=== PATIENT | male | born 1960 | race Caucasian/White ===

== ENCOUNTER → 2017-03-08 | Outpatient (CLI) | payer OTHER ==
[~2017-03-08] MED LIST: AUG0.05O4 EX; BCTRO; BETA0.1C3 EXT; IBUP-1050 PO; USTE45IN SC
[2017-03-12 13:45] LABS: HEPATITIS C VIRAL RNA BY PCR <15 NOT DETECTED IU/ML (<15); HEPATITIS C VIRAL RNA(LOG) PCR <1.18 NOT DETECTED LOG IU/ML (<1.18)
== END | disposition home or self-care (01) ==
LOC: C.LAB1850 13:53
PROVIDERS: ATTEND Nurse Practitioner Family
DX: B18.2 Chronic viral hepatitis C (principal)

== ENCOUNTER → 2017-11-27 | Outpatient (CLI) | payer OTHER ==
[~2017-11-27] MED LIST changes: +AMOX875T PO; +OXYC-737 PO
== END | disposition home or self-care (01) ==
LOC: C.LAB 18:19
DX: Z02.83 Encounter for blood-alcohol and blood-drug test (principal)

== ENCOUNTER 2018-06-27 12:28 | Emergency (ER) | payer OTHER ==
[~2018-06-27] VITALS: Ht 180.3 cm; Wt 78.4 kg
[~2018-06-27 12:28] MED LIST changes: -AMOX875T PO; -OXYC-737 PO
[2018-06-27] MEDS ORDERED: SODIUM CHLORIDE 0.9% 1000ML 1,000 ML IV STA (12:35)
[2018-06-27 12:37] VITALS: Ht 180.3 cm; Wt 78.4 kg
[2018-06-27 12:58] LABS: BASO % 0.5 %; BASO ABS # 0.05 K/uL (0-0.2); EOS % 2.5 %; EOS ABS # 0.24 K/uL (0-0.5); HEMATOCRIT 49.2 % (42-52); HEMOGLOBIN 16.4 g/dL (14.0-18.0); IG# 0.02 K/uL (0.00-0.02); LYMPH % 44.3 %; LYMPH ABS # 4.26 K/uL (1.2-3.4); MEAN CORPUSCULAR HEMOGLOBIN 33.7 pg (25-34); MEAN CORPUSCULAR HGB CONC 33.3 g/dl (32-36); MEAN PLATELET VOLUME 11.1 fL (7.4-10.4); MONO % 5.9 %; MONO ABS # 0.57 K/uL (0.11-0.59); NEUT % 46.6 %; NEUT ABS # 4.47 K/uL (1.4-6.5); PLATELET COUNT 201 K/uL (130-400); RED CELL DISTRIBUTION WIDTH CV 13.7 % (11.5-14.5); RED CELL DISTRIBUTION WIDTH SD 51.2 fL (36.4-46.3); WHITE BLOOD COUNT 9.61 K/uL (4.8-10.8)
--- NOTE | 2018-06-27 13:06 | EMERGENCY ROOM VISIT NOTE ---
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 the same time. Take your medications as prescribed. If taking an antibiotic consider taking a probiotic and/or eating yogurt, but at the least, please take with food as it can cause upset stomach. If you still have discomfort you may take the narcotic medication. Please be advised that these medications are habit forming, can make you sleepy, and can cause breathing issues. Do not use if you require your full attention. Take only as prescribed. You have been examined and treated today on an emergency basis only. This is not a substitute for, or an effort to provide, complete comprehensive medical care. It is impossible to recognize and treat all injuries or illnesses in a single emergency department visit. It is therefore important that you follow up closely with [facility], your PCP, and/or your specialist(s). Call as soon as possible for an appointment. Thank you for your time and consideration. I look forward to speaking with you again soon. Please don't hesitate to call us if you have any questions. Problem Qualifiers
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
[2018-06-27 13:13] LABS: PTT PATIENT 22.5 SECONDS (21.0-31.0)
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
[2018-06-27] MEDS ORDERED: DIPHTHERIA/TETANUS/PERTUSSIS 0.5 ML SYR/VIAL IM. ONE (13:15)
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
[2018-06-27 13:21] LABS: ALBUMIN 4.2 gm/dl (3.4-5.0); ALKALINE PHOSPHATASE 88 U/L (45-117); ALT/SGPT 27 U/L (12-78); AST/SGOT 21 U/L (15-37); BLOOD UREA NITROGEN 18 mg/dl (7-18); CALCIUM 9.4 mg/dl (8.5-10.1); CARBON DIOXIDE 11 mmol/L (21-32); CREATININE 1.54 mg/dl (0.60-1.40); GLUCOSE 123 mg/dl (70-99); POTASSIUM 3.7 mmol/L (3.5-5.1); SODIUM 139 mmol/L (136-145); TOTAL PROTEIN 8.6 gm/dl (6.4-8.2)
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
[2018-06-27 13:22] VITALS: O2SAT 96
[2018-06-27] MEDS ORDERED: AMOXICILLIN/CLAVULANATE TAB 875 MG TAB PO ONE (13:45)
[2018-06-27] MEDS ORDERED: FENTANYL CITRATE INJ 50 MCG/1 ML 2 ML VIAL IV ONE (13:45)
[2018-06-27] MEDS ORDERED: LIDOCAINE/EPINEPHRINE 1% 20 ML VIAL INFIL ONE (13:45)
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
[2018-06-27] MEDS ORDERED: MoRPHine SULFATE 4 MG/ML 1 ML CARP\\VIAL ONE (15:17)
[2018-06-27] MEDS ORDERED: AMOX875T PO ×2 (15:43→18:43)
[2018-06-27] MEDS ORDERED: OXYC-737 PO ×2 (15:43→18:43)
[2018-06-27] MEDS ORDERED: NURSING VERBAL MED ORDER ONE (16:15)
[2018-06-27] MEDS ORDERED: MoRPHine SULFATE 4 MG/ML 1 ML CARP\\VIAL IV STA (16:17)
[2018-06-27 18:58] VITALS: BP 131/79; PULSE 81; TEMP 37.1; O2SAT 94
[2018-06-30 10:26] LABS: HEPATITIS C VIRAL RNA BY PCR <15 NOT DETECTED IU/ML (<15); HEPATITIS C VIRAL RNA(LOG) PCR <1.18 NOT DETECTED LOG IU/ML (<1.18)
[2018-06-30 14:10] LABS: ISTAT CREATININE 1.1 mg/dl (0.6-1.3); ISTAT IONIZED CALCIUM 1.07 mmol/l (1.12-1.32); ISTAT POTASSIUM 3.9 mEq/L (3.3-5.0)
== END 2018-06-27 19:00 | disposition home or self-care (01) ==
LOC: C.EDB 12:28
DX: S41.112A Laceration without foreign body of left upper arm, initial encounter (principal); S21.112A Laceration without foreign body of left front wall of thorax without penetration into thoracic cavity, initial encounter; S01.412A Laceration without foreign body of left cheek and temporomandibular area, initial encounter; X99.1XXA Assault by knife, initial encounter; Y92.008 Other place in unspecified non-institutional (private) residence as the place of occurrence of the external cause; F17.200 Nicotine dependence, unspecified, uncomplicated

== ENCOUNTER 2025-08-30 11:08 | Inpatient (IN) ==
--- NOTE | 2025-08-30 11:24 | Emergency Department Note ---
Impression & Plan Acute hypoxic respiratory failure, Pulmonary embolism, bilateral, Rhinovirus ED Provider Note NAME: JAVIER ALEXANDER AGE: 64 SEX: M : 1960 ARRIVES VIA: Walk-In INFORMANT: Patient ED PROVIDER(S): Miguel Barahona DO CHIEF COMPLAINT: Shortness of breath and chest pain HPI: Patient is a 64-year-old male with a past medical history of intermittent palpitations who presents to the ER for shortness of breath and chest pain referred in by urgent care. Symptoms started about 2 weeks ago with cough and congestion. He has been bringing up yellow-white mucus. Shortness of breath and chest pain has been getting worse. Chest pain waxes and wanes in intensity but does not resolve. Located on the left breast that is sharp and stabbing. Worse with breathing. Denies any history of hypertension, hyperlipidemia, CAD. No recent trips or travel. No belly pain, nausea, vomiting or diarrhea. No dysuria, urgency or frequency. ADDITIONAL HISTORY OBTAINED: Per HPI Chronic Medical/Social Conditions Affecting Care: Per HPI PAST MEDICAL HISTORY:See Below PAST SURGICAL HISTORY:See Below FAMILY HISTORY:See Below SOCIAL HISTORY:See Below HOME MEDICATIONS:See Below ALLERGIES:See Below VITALS:See Below PHYSICAL EXAMINATION: GENERAL: Sitting up in bed, alert, well appearing, well nourished, no distress, non-toxic EYE EXAM: normal conjunctiva. OROPHARYNX: no exudate, no erythema, lips, buccal mucosa, and tongue normal and mucous membranes are moist NECK: supple, no nuchal rigidity, no adenopathy, non-tender LUNGS: Wheezing bilaterally. Normal chest wall mechanics HEART: no murmurs, S1 normal and S2 normal ABDOMEN: abdomen soft, non-tender, normo-active bowel sounds, no masses, no rebound or guarding. UPPER EXTREMITIES: upper extremities are grossly normal. LOWER EXTREMITIES: No pitting edema. Calves are equal bilaterally NEURO EXAM: Normal sensorium, cranial nerves II-XII grossly intact, normal speech, no gross weakness of arms, no gross weakness of legs. MEDICAL DECISION MAKING: Patient is a 64-year-old male who presents to the ER for the above-stated complaint. IV was established and blood work was obtained. Labs showed no significant leukocytosis or anemia. INR unremarkable. D-dimer was elevated at 15,000. BMP along with LFTs bilirubin and lipase is unremarkable. Troponins negative. Viral panel was positive for rhinovirus. CT angio of the chest shows bilateral PEs. Patient was placed on a heparin drip and bolus. Discussed with hospitalist for further evaluation management and treatment. Consults/Care Managements Discussions: Per [facility] Triage Nursing notes reviewed. Limited review of prior medical records performed Vital Signs: reviewed and remarkable for no significant abnormalities Differential diagnosis: Differential diagnoses includes but is not limited to pneumonia, bronchitis, COPD/Asthma exacerbation, pneumothorax, pulmonary embolism, congestive heart failure, acute coronary syndrome ER treatment provided: See below Diagnostics interpreted by me include EKG and cardiac monitoring as listed below: -Cardiac Monitoring: An order was placed for continuous cardiac monitoring. The monitor shows a rate of 95 with sinus rhythm. -ECG: Sinus rhythm rate 87 Normal axis No PVCs QTc 445 -Laboratory studies:Interpreted by me as stated above in MDM and shown below. Imaging studies: Xrays: As interpreted by me: Portable AP Apt. 1 view of the chest shows no focal Lutrate CTs show: CT angio of the chest shows bilateral PEs per my pulmonary interpretation CT angio of the chest shows bilateral PEs Procedures:none Critical Care: I have personally spent 75 minutes of critical care time in the direct management of this patient. This includes bedside care, interpretation of diagnostic studies, and testing, discussion with consultants, patient, and family members, and other required patient management activities. This 75 minutes is in excess of all separately billable procedures. Past Med/Surg History Problem List (Updated 08/30/25 @ 15:09 by Miguel Barahona DO) Rhinovirus (Acute) Acute hypoxic respiratory failure (Acute) Chest pain Pulmonary embolism, bilateral (Acute) Intermittent palpitations (Acute) Abnormal finding on CT scan (Acute) Penile lesion BPH (benign prostatic hyperplasia) Erectile dysfunction COVID-19 (Acute) Altered mental status Medical History Tumor of penis Arthritis, rheumatoid Hepatitis C Surgical History No pertinent past surgical history Social History Smoking Status: Current every day smoker Tobacco Type: E-cigarettes / Vaping Hx Alcohol Use: No Hx Substance Use: No Preferred Language: Swazi Communication Ability: Effective Sales Specialist Required: No Beliefs That Will Affect Care: None Current Living Situation: Spouse Feels Safe at Home: Yes Assistive Devices: None Allergies Allergies Allergy/AdvReac Type Severity Reaction Status Date / Time No Known Allergies Allergy Unknown Verified 04/14/25 15:43 Home Meds Home Medications Medication Instructions Recorded Confirmed multivitamin 1 tab PO DAILY 01/23/21 08/30/25 finasteride 5 mg tablet 5 mg PO DAILY 02/02/25 08/30/25 tamsulosin 0.4 mg capsule 0.4 mg PO DAILY 02/02/25 08/30/25 ustekinumab 45 mg/0.5 mL 45 mg subcut Q3M 02/02/25 08/30/25 subcutaneous syringe (Stelara) albuterol sulfate 90 mcg/actuation 2 puff inhalation Q6H PRN 08/30/25 08/30/25 aerosol inhaler cough,sob,wheezinng benzonatate 100 mg capsule 100 mg PO UD PRN Cough 08/30/25 08/30/25 doxycycline hyclate 100 mg capsule 100 mg PO BID .for 10 days 08/30/25 08/30/25 linaclotide 145 mcg capsule 145 mcg PO DAILY 08/30/25 08/30/25 (Linzess) prednisone 10 mg tablet 10 mg PO UD 08/30/25 08/30/25 Results & Data (ED) Vital Signs Vital Signs - 24 hr 08/30/25 11:13 08/30/25 11:42 08/30/25 12:00 Temperature 36.4 C L Temperature Source Temporal Artery Scan Pulse Rate 98 H 85 85 Pulse Rate from SpO2 Sensor 85 Respiratory Rate 22 20 Respiratory Effort / Characteristics Non-Labored Spontaneous Respiratory Depth Normal Blood Pressure 131/86 129/91 Blood Pressure Mean 101 103 Pulse Oximetry 95 98 Oxygen Delivery Method Room Air Nasal Cannula Oxygen Flow Rate 3 Sepsis Recent Fever Within 48 Hours No Sepsis New/Unexplained Change in Mental Status N/A Sepsis Action Taken by Nursing No Action Required 08/30/25 12:16 08/30/25 12:30 08/30/25 13:00 Temperature Temperature Source Pulse Rate 83 83 Pulse Rate from SpO2 Sensor 84 83 Respiratory Rate 25 H 22 Respiratory Effort / Characteristics SOB on Exertion Respiratory Depth Blood Pressure 124/86 132/85 Blood Pressure Mean 98 100 Pulse Oximetry 93 90 Oxygen Delivery Method Nasal Cannula Nasal Cannula Oxygen Flow Rate 3 3 Sepsis Recent Fever Within 48 Hours Sepsis New/Unexplained Change in Mental Status Sepsis Action Taken by Nursing 08/30/25 13:39 08/30/25 14:00 08/30/25 14:33 Temperature Temperature Source Pulse Rate 81 84 84 Pulse Rate from SpO2 Sensor 81 84 84 Respiratory Rate 21 23 27 H Respiratory Effort / Characteristics Respiratory Depth Blood Pressure 128/82 124/84 Blood Pressure Mean 97 97 Pulse Oximetry 91 95 94 Oxygen Delivery Method Nasal Cannula Nasal Cannula Nasal Cannula Oxygen Flow Rate 3 3 3 Sepsis Recent Fever Within 48 Hours Sepsis New/Unexplained Change in Mental Status Sepsis Action Taken by Nursing Laboratory Data 08/30/25 11:28 08/30/25 11:28 Lab Results 08/30/25 Range/Units 11:28 WBC 8.98 (4.8-10.8) K/ul RBC 4.63 L (4.70-6.10) M/uL Hgb 14.6 (14.0-18.0) g/dl Hct 43.0 (42.0-52.0) % MCV 92.9 (80.0-100.0) fL MCH 31.5 (25.0-34.0) pg MCHC 34.0 (32.0-36.0) g/dL RDW Std Deviation 45.1 (36.4-46.3) fL RDW Coeff of [place] 13.3 (11.5-14.5) % Plt Count 168 (130-400) K/uL MPV 10.0 (9.4-12.4) fL Immature Gran % (Auto) 0.3 % Neut % (Auto) 58.8 % Lymph % (Auto) 26.1 % [place] % (Auto) 11.4 % Eos % (Auto) 3.0 % Baso % (Auto) 0.4 % Neut # (Auto) 5.28 (1.40-6.50) K/uL Lymph # (Auto) 2.34 (1.20-3.40) K/uL [place] # (Auto) 1.02 H (0.11-0.59) K/uL Eos # (Auto) 0.27 (0.00-0.50) K/uL Baso # (Auto) 0.04 (0.00-0.20) K/uL Immature Gran # (Auto) 0.03 (0.01-0.20) K/uL PT 11.4 (9.0-12.0) Seconds INR 1.1 (0.9-1.1) APTT 27 (21-31) Seconds PTT Ratio 1.0 D-Dimer 38474 H* (0-500) ug/L FEU Sodium 137 (136-145) mmol/L Potassium 4.0 (3.5-5.1) mmol/L Chloride 104 (98-107) mmol/L Carbon Dioxide 23 (21-32) mmol/L Anion Gap 10 (3-11) BUN 17 (6-23) mg/dl Creatinine 0.97 (0.6-1.4) mg/dl Est Cr Clr Drug Dosing 89.9 ml/min eGFR 87.72 BUN/Creatinine Ratio 17.5 (10-20) Glucose 94 (70-99(Fasting)) mg/dl Calcium 8.9 (8.6-10.3) mg/dl Total Bilirubin 1.3 H (0.2-1.0) mg/dl AST 23 (13-39) U/L ALT 31 (7-52) U/L Alkaline Phosphatase 53 (34-104) U/L Troponin I High Sens 4.4 (0-20) pg/ml Total Protein 7.5 (6.0-8.3) gm/dl Albumin 3.8 (3.4-5.0) gm/dl Globulin 3.7 (2.5-4.0) gm/dl Albumin/Globulin Ratio 1.0 (0.9-2) Lipase 20 (11-82) U/L Adenovirus (PCR) Not Detected (NotDetected) B. pertussis DNA (PCR) Not Detected (NotDetected) B.parapertussis DNA PCR Not Detected (NotDetected) C. pneumoniae DNA (PCR) Not Detected (NotDetected) Coronavirus OC43 (PCR) Not Detected (NotDetected) Coronavirus HKU1 (PCR) Not Detected (NotDetected) Coronavirus 229E (PCR) Not Detected (NotDetected) SARS-CoV-2 (PCR) Not Detected (NotDetected) Coronavirus NL63 (PCR) Not Detected (NotDetected) Human Metapneumovir PCR Not Detected (NotDetected) Influenza Type A (PCR) Not Detected (NotDetected) Influenza Type B (PCR) Not Detected (NotDetected) M. pneumoniae (PCR) Not Detected (NotDetected) Parainfluenza 1 (PCR) Not Detected (NotDetected) Parainfluenza 2 (PCR) Not Detected (NotDetected) Parainfluenza 3 (PCR) Not Detected (NotDetected) Parainfluenza 4 (PCR) Not Detected (NotDetected) RSV (PCR) Not Detected (NotDetected) Entero/Rhino (PCR) DETECTED A (NotDetected) Administered Medications Heparin Sodium/Dextrose (Heparin 85361 Unit/500 Ml D5w) 25,000 units in 500 mls @ 29 mls/hr IV .[id number] [facility]; Protocol Stop: 09/29/25 14:14 Last Admin: 08/30/25 14:30 Dose: 1,450 units/hr, 29 mls/hr Documented By: CEF Co-signed By: CHARLEE Discontinued Medications Albuterol (Albut/Ipratrop 3mg/0.5mg Neb 3 Ml Vial) 3 ml NEB NOW STA; Protocol Stop: 08/30/25 11:22 Last Admin: 08/30/25 11:57 Dose: 3 ml Documented By: CEF Heparin Sodium (Porcine) (Heparin Sod (Porcine) 1000 Unit/Ml) 1 units IV NOW ONE Stop: 08/30/25 14:08 Last Admin: 08/30/25 14:30 Dose: 7,000 units Documented By: CEF Co-signed By: CHARLEE Heparin Sodium/Dextrose (Heparin Iv Adult Wt-Based Standard W/ Initial Bolus Protocol) 1 each IV NOW STA; Protocol Stop: 08/30/25 13:53 Last Admin: 08/30/25 14:34 Dose: Not Given Documented By: CEF Ioversol (Optiray 320 125ml) 112 ml IV ONCE ONE Stop: 08/30/25 13:25 Last Admin: 08/30/25 13:25 Dose: 112 ml Documented By: LELO Methylprednisolone (Methylprednisolone 125 Mg/2 Ml Vial) 40 mg IV NOW STA Stop: 08/30/25 11:22 Last Admin: 08/30/25 11:55 Dose: 40 mg Documented By: CEF Imaging Data Radiologist's Impression: Chest X-Ray 08/30/25 11:16 XR chest 1V portable CLINICAL HISTORY: Chest pain, nonspecific COMPARISON STUDY: 03/24/2025 FINDINGS: Heart size and pulmonary vasculature are normal. No consolidation or pleural effusion. No pneumothorax. IMPRESSION: No acute findings. ACT 112: Negative or not required by law. Electronically signed by: Han Hawkins M.D. 08/30/2025 12:01 PM Chest CTA 08/30/25 12:47 CT ANGIOGRAM OF THE CHEST CLINICAL HISTORY: Shortness of breath. Evaluate for pulmonary embolus. COMPARISON STUDY: Chest CT June 27, 2018. TECHNIQUE: Following the IV administration of 112 cc of Optiray 320, CT angiogram of the chest was performed from the upper abdomen to the thoracic inlet utilizing the pulmonary embolus protocol. Images are reviewed in the axial, sagittal, and coronal planes. 3-D MIPS images are created and assessed. IV contrast was administered without complication. A dose lowering technique was utilized adhering to the principles of ALARA. CT DOSE: 866.54 mGy.cm FINDINGS: Numerous bilateral pulmonary emboli are noted, including emboli within the distal left tibial artery. Emboli extend into the lobar and segmental branches of the left lung. There are also several lobar and segmental right sided pulmonary emboli. There is no CT evidence for right heart strain. There is no thoracic aortic dissection. No enlarged thoracic lymph nodes are present. There is a trace left pleural effusion. Subpleural groundglass opacities favor atelectasis. No definite pulmonary infarct is identified. There are no suspicious pulmonary nodules. There is mild upper lobe predominant paraseptal emphysema. There is no consolidation to suggest pneumonia. IMPRESSION: 1. Numerous bilateral pulmonary emboli, as described above. Moderate embolus burden. No CT evidence for right heart strain. Findings will be called/faxed to the ordering provider at time of dictation. 2. Trace left pleural effusion. ACT 112: Negative or not required by law. Electronically signed by: Andre Jamison M.D. 08/30/2025 2:18 PM Discharge Plan Visit Data Chief Complaint: Chest Pain Stated Complaint: SOB, CHEST PAIN ED Provider: Miguel Barahona Discharge Problem: Acute hypoxic respiratory failure, Pulmonary embolism, bilateral, Rhinovirus Condition: Critical Forms Stand Alone Forms: My [facility] [employer] Prescriptions Prescriptions: No Action finasteride 5 mg tablet 5 mg PO DAILY tamsulosin 0.4 mg capsule 0.4 mg PO DAILY Stelara 45 mg/0.5 mL syringe 45 mg subcut Q3M multivitamin Tablet 1 tab PO DAILY Patient Comments: otc unable to verify prednisone 10 mg tablet 10 mg PO UD Rx Instructions: 5 tabs po for 2 days, 4 tabs po for 2 days, 3 tabs po for 2 days, 2 tabs po for 2 days, then 1 tab po for 2 days doxycycline hyclate 100 mg capsule 100 mg PO BID benzonatate 100 mg capsule 100 mg PO UD PRN (Reason: Cough) albuterol sulfate 90 mcg/actuation HFA aerosol inhaler 2 puff INHALATION Q6H PRN (Reason: cough,sob,wheezinng) Linzess 145 mcg capsule 145 mcg PO DAILY Referrals Referrals: Silvina Guerrero MD [Primary Care Provider] -
[2025-08-30 11:45] LABS: Hematocrit (blood only) 43.0 % (42.0-52.0); Hemoglobin 14.6 g/dl (14.0-18.0); Immature Granulocytes # (auto) 0.03 K/uL (0.01-0.20); Immature Granulocytes % (auto) 0.3 %; Mean Corpuscular Hemoglobin 31.5 pg (25.0-34.0); Mean Corpuscular Volume 92.9 fL (80.0-100.0); Platelet Count 168 K/uL (130-400); RDW Standard Deviation 45.1 fL (36.4-46.3); Red Blood Count 4.63 M/uL (4.70-6.10); White Blood Count 8.98 K/ul (4.8-10.8)
[2025-08-30] MEDS: ALBUT/IPRATROP 3MG/0.5MG NEB 3 ML VIAL NEB STA (11:57)
--- NOTE | 2025-08-30 12:02 | XRay Report ---
XR chest 1V portable CLINICAL HISTORY: Chest pain, nonspecific COMPARISON STUDY: 03/24/2025 FINDINGS: Heart size and pulmonary vasculature are normal. No consolidation or pleural effusion. No p neumothorax. IMPRESSION: No acute findings. ACT 112: Negative or not required by law. Electronically signed by: Han Hawkins M.D. 08/30/2025 12:01 PM
[2025-08-30 12:08] LABS: Alanine Aminotransferase 31.0 U/L (7-52); Albumin Globulin Ratio 1.0 (0.9-2); Albumin Level 3.8 gm/dl (3.4-5.0); Alkaline Phosphatase 53.0 U/L (34-104); Anion Gap 10.0 (3-11); Bilirubin,Total 1.3 mg/dl (0.2-1.0); Blood Urea Nitrogen 17.0 mg/dl (6-23); Calcium 8.9 mg/dl (8.6-10.3); Carbon Dioxide 23.0 mmol/L (21-32); Chloride 104.0 mmol/L (98-107); Creatinine Clr Calc Pharmacy 89.9 ml/min; Globulin 3.7 gm/dl (2.5-4.0); Glucose 94.0 mg/dl (70-99(Fasting)); Lipase 20.0 U/L (11-82); Potassium 4.0 mmol/L (3.5-5.1); Sodium 137.0 mmol/L (136-145); Total Protein 7.5 gm/dl (6.0-8.3)
[2025-08-30 12:28] LABS: Chlamydia pneumoniae PCR Not Detected (NotDetected); Coronavirus 229E PCR Not Detected (NotDetected); Coronavirus CoV-2 (COVID19)PCR Not Detected (NotDetected); Coronavirus HKU1 PCR Not Detected (NotDetected); Coronavirus NL63 PCR Not Detected (NotDetected); Coronavirus OC43PCR Not Detected (NotDetected); Human Metapneumovirus PCR Not Detected (NotDetected); Parainfluenza Virus 1 PCR Not Detected (NotDetected); Parainfluenza Virus 2 PCR Not Detected (NotDetected); Parainfluenza Virus 3 PCR Not Detected (NotDetected); Parainfluenza Virus 4 PCR Not Detected (NotDetected); Respiratory Syncytial VirusPCR Not Detected (NotDetected); Rhinovirus/Enterovirus PCR DETECTED (NotDetected)
[2025-08-30] MEDS: OPTIRAY 320 125ml IV ONE (13:25)
--- NOTE | 2025-08-30 14:20 | CT Scan Report ---
CT ANGIOGRAM OF THE CHEST CLINICAL HISTORY: Shortness of breath. Evaluate for pulmonary embolus. COMPARISON STUDY: Chest CT June 27, 2018. TECHNIQUE: Following the IV administration of 112 cc of Optiray 320, CT angiogram of the chest was pe rformed from the upper abdomen to the thoracic inlet utilizing the pulmonary embolus protocol. Images are reviewed in the axial, sagittal, and coronal planes. 3-D MIPS images are created and assessed. I V contrast was administered without complication. A dose lowering technique was utilized adhering to the principles of ALARA. CT DOSE: 866.54 mGy.cm FINDINGS: Numerous bilateral pulmonary emboli are noted, including emboli within the distal left tibi al artery. Emboli extend into the lobar and segmental branches of the left lung. There are also sever al lobar and segmental right sided pulmonary emboli. There is no CT evidence for right heart strain. There is no thoracic aortic dissection. No enlarged thoracic lymph nodes are present. There is a trac e left pleural effusion. Subpleural groundglass opacities favor atelectasis. No definite pulmonary in farct is identified. There are no suspicious pulmonary nodules. There is mild upper lobe predominant paraseptal emphysema. There is no consolidation to suggest pneumonia. IMPRESSION: 1. Numerous bilateral pulmonary emboli, as described above. Moderate embolus burden. No CT evidence f or right heart strain. Findings will be called/faxed to the ordering provider at time of dictation. 2. Trace left pleural effusion. ACT 112: Negative or not required by law. Electronically signed by: Andre Jamison M.D. 08/30/2025 2:18 PM
[2025-08-30] MEDS: HEPARIN SOD (PORCINE) 1000 UNIT/ML IV ONE (14:30)
[2025-08-30] MEDS: HEPARIN 25000 UNIT/500 ML D5W 25,000 UNITS/500 ML BAG IV SCH (14:30)
[2025-08-30 14:34] LABS: INR 1.1 (0.9-1.1); Partial Thromboplastin Time 27 Seconds (21-31); Prothrombin Time 11.4 Seconds (9.0-12.0)
[2025-08-30] MEDS: Heparin IV Adult Wt-Based Standard w/ INITIAL Bolus Protocol IV STA (14:34)
--- NOTE | 2025-08-30 14:45 | History & Physical Report ---
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 Symptoms started about 3 weeks ago with cough, uri symptoms, went to [facility] and found to have rhinovirus, started on prednisone. Today, he developed shortness of breath, stating "hard to breath", stabbing chest pain to the left side that worsened with deep breathing, dizziness, nausea and dry heaving. Hypoxic in the ED at 88% and required up to 3LPM of supplementl oxygen. Current tobacco user via Vape w/ nicotine and THC. Not currently anticoagulated. Acute hypoxic resp failure 2/2 Bilateral PE #Chest Pain * Admit to PCU Telemetry for further management and workup * +SOB, Hypoxia to 88%, left-side chest pain requiring supplemental O2; trop negative * D-Dimer elev >15K * CTA chest showing numerous lobar and segmental bilateral pulmonary emboli, moderate embolus burden, No right heart strain * Chest Xray negative * BNP 10; Echocardiogram showing mild LVH w/ LVEF 55-60%, Grade I diastolic dysfunction, AV sclerosis * Venous Doppler for r/o DVT and showed extensive DVT to RLE * Heparin gtts initiated-> plan to transition to NOAC when able * Pulmonary consult ordered for new onset PE * Discharge planning: Will need hypercoagulable workup outpatient for h/o hemochromatosis genetic mutation; possible home oxygen will be needed at d/c #Upper URI + Rhino * SOB, cough, rhinorrhea x 3 weeks-> + Rhinovirus * Isolation precautions * Wheezing in ED and given Albuterol neb w/ clinical improvement- Albuterol ordered Q6H as needed #Current tobacco user * Current vape use w/ nicotine and THC * Refused nicotine patch * Smoking cessation prior to discharge #BPH * Continue home meds DVT Ppx: Heparin Code status: DNR/DNI PCP: Dr. Silvina Guerrero Dispo: Admit Patient seen in collaboration with Dr. Guerrero. Please see addendum.I spent a total of 65 minutes coordinating, documenting and providing care for this patient excluding time spent in the performance of separately billed services or time spent by another provider/QHP. 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 Symptoms started about 3 weeks ago with cough, uri symptoms, went to [facility] and found to have rhinovirus, started on prednisone. Today, he developed shortness of breath, stating "hard to breath", stabbing chest pain to the left side that worsened with deep breathing, dizziness, nausea and dry heaving. Hypoxic in the ED at 88% and required up to 3LPM of supplemental oxygen. Current tobacco user via Vape w/ nicotine and THC. Not currently anticoagulated. Denies fever, chills, weight loss, weakness, headache, cognitive changes, vision/hearing changes, swelling, urinary concerns, V/D, joint swelling/pain, ambulation difficulty, skin rashes, lesions, bleeding, bruising. In the emergency department, patient was hemodynamically stable with tachypnea to 29-30 and hypoxic to 88% on room air. Initially, the patient was wheezing and reported a history of having URI recently. Albuterol neb given in ED with some clinical improvement. BioFire + Rhino. Chest Xray showed no acute findings. EKG normal. Patient reported having chest pain, stabbing to left side, and not currently on anticoagulation with no history of blood clots. D-Dimer elevated >15K. Chest CTA showing several lobar and segmental right and left sided pulmonary emboli with no right heart strain noted. Trop negative. Heparin bolus and drip started in the ED. Bili elevated to 1.3 noted on lab workup with a normal AST/ALT. Echocardiogram ordered showing mild LVH w/ LVEF 55-60%, Grade I diastolic dysfunction, AV sclerosis. As per external chart review, patient was seen by [facility] on 08/19 for chest pain, cough, shortness of breath and diagnosed with URI. He was sent home with Prednisone taper. As per patient's , his symptoms began ~08/09 with URI symptoms that started after the was hospitalized following a brain surgery procedure. As per external record review, patient has a history of hemochromatosis genetic [id number] and does not follow Hematology outpatient. He is not currently anticoagulated and has no history of blood clots; however, he dos have risk factors including history of penile carcinoma with current tobacco use. History obtained primarily from the patient and via hospitalization record. The patient's family was at the bedside and assisted with history of present illness and medications. External chart review obtained from [facility]. Allergies Allergy/AdvReac Type Severity Reaction Status Date / Time No Known Allergies Allergy Unknown Verified 04/14/25 15:43 Home Medications Medication Instructions Recorded Confirmed Type multivitamin 1 tab PO DAILY 01/23/21 08/30/25 History finasteride 5 mg tablet 5 mg PO DAILY 02/02/25 08/30/25 History tamsulosin 0.4 mg capsule 0.4 mg PO DAILY 02/02/25 08/30/25 History ustekinumab 45 mg/0.5 mL 45 mg subcut Q3M 02/02/25 08/30/25 History subcutaneous syringe (Stelara) albuterol sulfate 90 mcg/actuation 2 puff inhalation Q6H PRN 08/30/25 08/30/25 History aerosol inhaler cough,sob,wheezinng benzonatate 100 mg capsule 100 mg PO UD PRN Cough 08/30/25 08/30/25 History doxycycline hyclate 100 mg capsule 100 mg PO BID .for 10 days 08/30/25 08/30/25 History linaclotide 145 mcg capsule 145 mcg PO DAILY 08/30/25 08/30/25 History (Linzess) prednisone 10 mg tablet 10 mg PO UD 08/30/25 08/30/25 History Past Med/Surg History Problem List (Updated 08/30/25 @ 15:14 by PURVI Christie) Tobacco use disorder Rhinovirus (Acute) Acute hypoxic respiratory failure (Acute) Chest pain Pulmonary embolism, bilateral (Acute) Intermittent palpitations (Acute) Abnormal finding on CT scan (Acute) Penile lesion BPH (benign prostatic hyperplasia) Erectile dysfunction COVID-19 (Acute) Altered mental status Medical History Tumor of penis Arthritis, rheumatoid Hepatitis C Surgical History No pertinent past surgical history Social History Smoking Status: Current every day smoker Tobacco Type: E-cigarettes / Vaping Hx Alcohol Use: No Hx Substance Use: No Preferred Language: Urdu Communication Ability: Effective English Division Chair Required: No Beliefs That Will Affect Care: None Current Living Situation: Spouse Feels Safe at Home: Yes Assistive Devices: None Review of Systems Review of Systems: All systems reviewed & are unremarkable except as noted in HPI & below Physical Exam Physical Exam: Physical exam as per Attending Provider. See addendum. Results & Data Results & Data Vital Signs (Past 12 Hours) Vital Signs Temp Pulse Resp BP Pulse Ox O2 Del Method 08/30/25 11:42 85 08/30/25 11:13 36.4 C L 98 H 22 131/86 95 Room Air Laboratory Results Short CBC 08/30/25 Range/Units 11:28 WBC 8.98 (4.8-10.8) K/ul Hgb 14.6 (14.0-18.0) g/dl Hct 43.0 (42.0-52.0) % Plt Count 168 (130-400) K/uL BMP 08/30/25 11:28 Sodium 137 Potassium 4.0 Chloride 104 Carbon Dioxide 23 BUN 17 Creatinine 0.97 Glucose 94 Calcium 8.9 Liver Function 08/30/25 Range/Units 11:28 Total Bilirubin 1.3 H (0.2-1.0) mg/dl AST 23 (13-39) U/L ALT 31 (7-52) U/L Alkaline Phosphatase 53 (34-104) U/L Albumin 3.8 (3.4-5.0) gm/dl Diagnostic Findings Chest X-Ray 08/30/25 11:16 XR chest 1V portable CLINICAL HISTORY: Chest pain, nonspecific COMPARISON STUDY: 03/24/2025 FINDINGS: Heart size and pulmonary vasculature are normal. No consolidation or pleural effusion. No pneumothorax. IMPRESSION: No acute findings. ACT 112: Negative or not required by law. Electronically signed by: Han Hawkins M.D. 08/30/2025 12:01 PM Chest CTA 08/30/25 12:47 CT ANGIOGRAM OF THE CHEST CLINICAL HISTORY: Shortness of breath. Evaluate for pulmonary embolus. COMPARISON STUDY: Chest CT June 27, 2018. TECHNIQUE: Following the IV administration of 112 cc of Optiray 320, CT angiogram of the chest was performed from the upper abdomen to the thoracic inlet utilizing the pulmonary embolus protocol. Images are reviewed in the axial, sagittal, and coronal planes. 3-D MIPS images are created and assessed. IV contrast was administered without complication. A dose lowering technique was utilized adhering to the principles of ALARA. CT DOSE: 866.54 mGy.cm FINDINGS: Numerous bilateral pulmonary emboli are noted, including emboli within the distal left tibial artery. Emboli extend into the lobar and segmental branches of the left lung. There are also several lobar and segmental right sided pulmonary emboli. There is no CT evidence for right heart strain. There is no thoracic aortic dissection. No enlarged thoracic lymph nodes are present. There is a trace left pleural effusion. Subpleural groundglass opacities favor atelectasis. No definite pulmonary infarct is identified. There are no suspicious pulmonary nodules. There is mild upper lobe predominant paraseptal emphysema. There is no consolidation to suggest pneumonia. IMPRESSION: 1. Numerous bilateral pulmonary emboli, as described above. Moderate embolus burden. No CT evidence for right heart strain. Findings will be called/faxed to the ordering provider at time of dictation. 2. Trace left pleural effusion. ACT 112: Negative or not required by law. Electronically signed by: Andre Jamison M.D. 08/30/2025 2:18 PM Supervising Physician Co-Signing Physician Notes Presents with SOB and chest pain for the past 3 weeks SOB at rest and with activity. Chest pain is left sided, stabbing and worse with deep breath Around the same time, he had URI symptoms with as well. Vapes nicotine and THC Was hypoxic in ER On exam, General: Not in distress Eyes: PERRL, conjunctivae normal, not pale, anicteric sclerae, EOM intact bilaterally ENMT: External ear and nose normal, oropharynx normal Respiratory: Not in resp distress, on nasal cannula, CTA b/l Cardiovascular: RRR S1 S2 Gastrointestinal (Abdomen): Abdomen is not distended, soft, non-tender to palpation, normal bowel sounds Musculoskeletal: No pedal edema, No calf tenderness Neurologic: Alert and oriented x 3, No focal weakness, sensation grossly intact Psychiatric: Euthymic affect Lab notable for DDimer of 15,750, [place] of 1.3 Resp PCR +for Rhinovirus CXR did not show any acute abnormalities CT PE independently reviewed showed bilateral PE Dopplers showing RLE DVT Acute respiratory failure with hypoxia due to Acute Bilateral Pulmonary Embolism Right Lower Extremity DVT Started on heparin drip Hemodynamically stable Get TTE Pulm consult Educated about anticoagulation Reports history of hemochromatosis gene. Will need hypercoagulable workup Patient stated he is DNR. at bedside Will need 2 step to determine oxygen needs at time of discharge Other plans as detailed by Susan LOJA
--- NOTE | 2025-08-30 16:28 | Ultrasound Report ---
Technique: Venous ultrasound evaluation was performed utilizing grayscale, color Doppler and wave form evaluation. Images were also obtained with and without compression Findings: There is extensive right leg deep venous thrombosis, extending from the common femoral vein through the superficial femoral and popliteal veins into the right calf The left common femoral, superficial femoral, popliteal, and visualized calf veins demonstrate normal anechoic lumens with full compressibility. Impression: 1. Extensive right leg DVT 2. No evidence of left leg deep venous thrombosis ACT 112: Positive. There are findings on this exam that require communication between the performing entity and the patient following Patient Test Result Information Act ([place] ACT 112) guidelines. Electronically signed by Eleuterio Jeffers 08-30-2025 4:27 PM
--- NOTE | 2025-08-30 16:52 | Electrocardiogram Report ---
Test Reason : Blood Pressure : */* mmHG Vent. Rate : 87 BPM Atrial Rate : 87 BPM P-R Int : 118 ms QRS Dur : 92 ms QT Int : 370 ms P-R-T Axes : -24 -17 -30 degrees QTcB Int : 445 ms Normal sinus rhythm possible Inferior infarct , age undetermined Abnormal ECG When compared with ECG of 25-Mar-2025 05:36, Vent. rate has increased by 30 bpm Inverted T waves have replaced nonspecific T wave abnormality in Inferior leads Confirmed by David Abad ([id number]) on 08/30/2025 4:52:08 PM Referred By: REFERRED SELF Confirmed By: David Abad
[2025-08-30] MEDS ORDERED: MELATONIN 3 MG TAB PO PRN (17:17)
[2025-08-30] MEDS ORDERED: ALBUTEROL 0.083% NEBU SOLN 3 ML VIAL NEB PRN (17:17)
[2025-08-30] MEDS ORDERED: ALUMINUM/MAGNESIUM SUSP 30 ML UDC PO PRN (17:17)
[2025-08-30] MEDS ORDERED: POLYETHYLENE (MIRALAX) 17 GM PACK PO PRN (17:17)
[2025-08-30] MEDS ORDERED: ACETAMINOPHEN 325 MG TAB PO PRN (17:17)
[2025-08-30] MEDS ORDERED: ONDANSETRON INJ 2 MG/ML 2 ML VIAL IV PRN (17:17)
[2025-08-30] MEDS ORDERED: MAGNESIUM HYDROXIDE SUSP 30 ML UDC PO PRN (17:17)
[2025-08-30 21:37] LABS: ANTI-Xa, UFH(UnfractionatedHep 0.62 IU/ml (0.3-0.7)
[2025-08-31 06:45] LABS: Hematocrit (blood only) 41.7 % (42.0-52.0); Hemoglobin 14.4 g/dl (14.0-18.0); Mean Corpuscular Hemoglobin 32.4 pg (25.0-34.0); Mean Corpuscular Volume 93.7 fL (80.0-100.0); Platelet Count 174 K/uL (130-400); RDW Standard Deviation 44.5 fL (36.4-46.3); Red Blood Count 4.45 M/uL (4.70-6.10); White Blood Count 12.06 K/ul (4.8-10.8)
[2025-08-31 07:14] LABS: Anion Gap 8.0 (3-11); Blood Urea Nitrogen 19.0 mg/dl (6-23); Calcium 9.2 mg/dl (8.6-10.3); Carbon Dioxide 27.0 mmol/L (21-32); Chloride 104.0 mmol/L (98-107); Creatinine Clr Calc Pharmacy 97.0 ml/min; Glucose 118.0 mg/dl (70-99(Fasting)); Magnesium 2.5 mg/dl (1.7-2.4); Potassium 4.2 mmol/L (3.5-5.1); Sodium 139.0 mmol/L (136-145)
[2025-08-31 07:16] LABS: ANTI-Xa, UFH(UnfractionatedHep 0.64 IU/ml (0.3-0.7)
[2025-08-31] MEDS: TAMSULOSIN HCL 0.4 MG CAP PO SCH (08:25)
[2025-08-31] MEDS: FINASTERIDE 5 MG TAB PO SCH (08:25)
[2025-08-31] MEDS: LINACLOTIDE 145 MCG CAPSULE PO SCH (08:25)
--- NOTE | 2025-08-31 11:23 | Pulmonary Consultation ---
Date of Consultation August 31, 2025 Assessment & Plan (1) Pulmonary embolism, bilateral: Plan Impression: 64-year-old male with unprovoked significant DVT and PE. He is hemodynamically stable with negative biomarkers and normal echocardiogram. Recommendations: 1. Acute PE: Agree with anticoagulation. Okay to discontinue heparin and transition to direct thrombin inhibitors. Given the unprovoked/idiopathic nature of the patient's clot, would recommend lifelong anticoagulation. If the patient is uncomfortable continuing with lifelong anticoagulation, would recommend at least 6 months and then he can follow-up with hematology oncology to determine whether or not additional thrombophilia evaluation may be appropriate. 2. Hypoxemia: Resolved. Recommend formal two-step evaluation prior to discharge to assess whether or not supplemental oxygen is required. 3. History of tobacco abuse: Consideration for outpatient PFTs may be appropriate in 8 to 12 weeks. He is not bronchospastic currently and no indication for inhalers, steroids, or antibiotics at this point in time. 4. Rhinovirus: No intervention required. The patient appears to be doing quite well clinically. Think he can likely be dismissed from the hospital. Pulmonary will sign off. Feel free to contact us with questions or concerns History of Present Illness Attending Physician: Adan Montano MD History of Present Illness Asked by hospitalist to assist in evaluation management this patient admitted with subacute hemodynamically insignificant PEs. History is obtained from discussion with the patient as well as review of the electronic medical record. Patient is a 64-year-old male with a remote history of tobacco abuse who continues to use e-cigarettes who presented to the emergency room with several week history of shortness of breath and chest pain. D-dimer was elevated. The CT demonstrated filling defects consistent with thromboembolic disease. He did require oxygen for a brief period of time and was noted to be positive for rhinovirus. He was initiated on heparin. He has been admitted to the hospitalist service. This morning he states the pain and shortness of breath are better. He is having no bleeding complications. He denies any syncope or presyncope. No significant lower extremity edema although they did note a DVT on ultrasound. The patient reports a significant family history of thromboembolic disease. He states his brother due to a PE. No other family members with clotting or bleeding disorders that he is aware of. Allergies Allergy/AdvReac Type Severity Reaction Status Date / Time No Known Allergies Allergy Unknown Verified 04/14/25 15:43 Home Medications Medication Instructions Recorded Confirmed Type multivitamin 1 tab PO DAILY 01/23/21 08/30/25 History finasteride 5 mg tablet 5 mg PO DAILY 02/02/25 08/30/25 History tamsulosin 0.4 mg capsule 0.4 mg PO DAILY 02/02/25 08/30/25 History ustekinumab 45 mg/0.5 mL 45 mg subcut Q3M 02/02/25 08/30/25 History subcutaneous syringe (Stelara) albuterol sulfate 90 mcg/actuation 2 puff inhalation Q6H PRN 08/30/25 08/30/25 History aerosol inhaler cough,sob,wheezinng benzonatate 100 mg capsule 100 mg PO UD PRN Cough 08/30/25 08/30/25 History doxycycline hyclate 100 mg capsule 100 mg PO BID .for 10 days 08/30/25 08/30/25 History linaclotide 145 mcg capsule 145 mcg PO DAILY 08/30/25 08/30/25 History (Sarahzess) prednisone 10 mg tablet 10 mg PO UD 08/30/25 08/30/25 History Patient History Medical History Tumor of penis Arthritis, rheumatoid Hepatitis C Surgical History No pertinent past surgical history Social History Smoking Status: Current every day smoker Tobacco Type: E-cigarettes / Vaping Hx Alcohol Use: No Hx Substance Use: No Preferred Language: [place] Communication Ability: Effective Hospital Admissions Clerk Required: No Beliefs That Will Affect Care: None Current Living Situation: Spouse Feels Safe at Home: Yes Safety Concerns: Feels Safe At This Time Assistive Devices: Glasses Review of Systems Review of Systems: Please refer to admission H&P. No additions or deletions Physical Exam Constitutional: WD/WN, vitals as above Neck: trachea midline, no thyromegaly Respiratory: normal respiratory effort, lungs clear to auscultation Cardiovascular: RRR, no murmur, no edema Gastrointestinal (Abdomen): normal bowel sounds, soft, nontender, no hepatosplenomegaly Musculoskeletal: Extremities: extremities normal to inspection Skin: no rashes, warm and dry Neurologic: Nonfocal exam Lymphatic: no cervical lymphadenopathy Results & Data Results & Data Vital Signs (Past 12 Hours) Vital Signs Temp Pulse Pulse Resp BP Pulse Ox O2 Del Method 08/31/25 09:00 94 Room Air 08/31/25 08:00 Room Air 08/31/25 08:00 36.6 C 77 16 136/68 99 Nasal Cannula 08/31/25 05:59 63 08/31/25 03:32 36.6 C 66 18 114/76 97 Nasal Cannula O2 Flow Rate 08/31/25 09:00 08/31/25 08:00 08/31/25 08:00 2.0 08/31/25 05:59 08/31/25 03:32 2.0 Critical Care Results & Data Vital Signs (Past 12 Hours) Vital Signs Temp Pulse Pulse Resp BP Pulse Ox O2 Del Method 08/31/25 09:00 94 Room Air 08/31/25 08:00 Room Air 08/31/25 08:00 36.6 C 77 16 136/68 99 Nasal Cannula 08/31/25 05:59 63 08/31/25 03:32 36.6 C 66 18 114/76 97 Nasal Cannula O2 Flow Rate 08/31/25 09:00 08/31/25 08:00 08/31/25 08:00 2.0 08/31/25 05:59 08/31/25 03:32 2.0 Lab & Micro Results (Past 24 Hours) RBC 4.45 M/uL (4.70-6.10) L 08/31/25 WBC 12.06 K/ul (4.8-10.8) H 08/31/25 Hgb 14.4 g/dl (14.0-18.0) 08/31/25 Hct 41.7 % (42.0-52.0) L 08/31/25 MCV 93.7 fL (80.0-100.0) 08/31/25 MCH 32.4 pg (25.0-34.0) 08/31/25 MCHC 34.5 g/dL (32.0-36.0) 08/31/25 RDW Standard Deviation 44.5 fL (36.4-46.3) 08/31/25 RDW Coefficient of Variation 12.9 % (11.5-14.5) 08/31/25 Plt Count 174 K/uL (130-400) 08/31/25 MPV 10.2 fL (9.4-12.4) 08/31/25 Neutrophils (%) (Auto) 58.8 % 08/30/25 Lymphocytes (%) (Auto) 26.1 % 08/30/25 Monocytes # (Auto) 1.02 K/uL (0.11-0.59) H 08/30/25 Eosinophils # (Auto) 0.27 K/uL (0.00-0.50) 08/30/25 Immature Granulocyte % (Auto) 0.3 % 08/30/25 Neutrophils # (Auto) 5.28 K/uL (1.40-6.50) 08/30/25 Lymphocytes # (Auto) 2.34 K/uL (1.20-3.40) 08/30/25 Monocytes # (Auto) 1.02 K/uL (0.11-0.59) H 08/30/25 Eosinophils # (Auto) 0.27 K/uL (0.00-0.50) 08/30/25 Basophils # (Auto) 0.04 K/uL (0.00-0.20) 08/30/25 Immature Granulocyte # (Auto) 0.03 K/uL (0.01-0.20) 5 Na 139 mmol/L (136-145) 08/31/25 K 4.2 mmol/L (3.5-5.1) 08/31/25 Cl 104 mmol/L (98-107) 08/31/25 CO2 27 mmol/L (21-32) 08/31/25 Anion Gap 8 (3-11) 08/31/25 BUN 19 mg/dl (6-23) 08/31/25 Creatinine 0.83 mg/dl (0.6-1.4) 08/31/25 BUN/Creatinine Ratio 22.9 (10-20) H 08/31/25 Glu 118 mg/dl (70-99(Fasting)) H 08/31/25 Ca 9.2 mg/dl (8.6-10.3) 08/31/25 Phosphorus Level 3.3 mg/dl (2.5-4.9) 08/31/25 Total Bilirubin 1.3 mg/dl (0.2-1.0) H 08/30/25 AST 23 U/L (13-39) 08/30/25 ALT 31 U/L (7-52) 08/30/25 Alkaline Phosphatase 53 U/L (34-104) 08/30/25 TP 7.5 gm/dl (6.0-8.3) 08/30/25 Albumin 3.8 gm/dl (3.4-5.0) 08/30/25 Globulin 3.7 gm/dl (2.5-4.0) 08/30/25 Albumin/Globulin Ratio 1.0 (0.9-2) 08/30/25 Mg 2.5 mg/dl (1.7-2.4) H 08/31/25 06:18 Calcium Level 9.2 mg/dl (8.6-10.3) 08/31/25 06:18 Prothromb Time International Ratio 1.1 (0.9-1.1) 08/30/25 11:2 8 Diagnostic Findings (Past 24 Hours) Chest X-Ray 08/30/25 11:16 XR chest 1V portable CLINICAL HISTORY: Chest pain, nonspecific COMPARISON STUDY: 03/24/2025 FINDINGS: Heart size and pulmonary vasculature are normal. No consolidation or pleural effusion. No pneumothorax. IMPRESSION: No acute findings. ACT 112: Negative or not required by law. Electronically signed by: Han Hawkins M.D. 08/30/2025 12:01 PM Chest CTA 08/30/25 12:47 CT ANGIOGRAM OF THE CHEST CLINICAL HISTORY: Shortness of breath. Evaluate for pulmonary embolus. COMPARISON STUDY: Chest CT June 27, 2018. TECHNIQUE: Following the IV administration of 112 cc of Optiray 320, CT angiogram of the chest was performed from the upper abdomen to the thoracic inlet utilizing the pulmonary embolus protocol. Images are reviewed in the axial, sagittal, and coronal planes. 3-D MIPS images are created and assessed. IV contrast was administered without complication. A dose lowering technique was utilized adhering to the principles of ALARA. CT DOSE: 866.54 mGy.cm FINDINGS: Numerous bilateral pulmonary emboli are noted, including emboli within the distal left tibial artery. Emboli extend into the lobar and segmental branches of the left lung. There are also several lobar and segmental right sided pulmonary emboli. There is no CT evidence for right heart strain. There is no thoracic aortic dissection. No enlarged thoracic lymph nodes are present. There is a trace left pleural effusion. Subpleural groundglass opacities favor atelectasis. No definite pulmonary infarct is identified. There are no suspicious pulmonary nodules. There is mild upper lobe predominant paraseptal emphysema. There is no consolidation to suggest pneumonia. IMPRESSION: 1. Numerous bilateral pulmonary emboli, as described above. Moderate embolus burden. No CT evidence for right heart strain. Findings will be called/faxed to the ordering provider at time of dictation. 2. Trace left pleural effusion. ACT 112: Negative or not required by law. Electronically signed by: Andre Jamison M.D. 08/30/2025 2:18 PM Venous Doppler Study 08/30/25 14:45 Technique: Venous ultrasound evaluation was performed utilizing grayscale, color Doppler and wave form evaluation. Images were also obtained with and without compression Findings: There is extensive right leg deep venous thrombosis, extending from the common femoral vein through the superficial femoral and popliteal veins into the right calf The left common femoral, superficial femoral, popliteal, and visualized calf veins demonstrate normal anechoic lumens with full compressibility. Impression: 1. Extensive right leg DVT 2. No evidence of left leg deep venous thrombosis ACT 112: Positive. There are findings on this exam that require communication between the performing entity and the patient following Patient Test Result Information Act ([place] ACT 112) guidelines. Electronically signed by Eleuterio Jeffers 08-30-2025 4:27 PM I & O Totals 24 Hours 08/30/25 08/31/25 09/01/25 06:59 06:59 06:59 Intake Total 1035.817 / 1035.817 364.183 / 364.183 Balance 1035.817 / 1035.817 364.183 / 364.183 Cumulative 08/30/25 11:08 thru 08/31/25 07:45 Intake Total 1400.000 Balance 1400.000 RT Ventilator Mngmt (Last Documented) Ventilator Ordered Settings Respiratory Rate 16 08/31/25 08:00 Ventilator - PT Measurements Respiratory Rate 16 PG Care Time/CCT Total # of Minutes Spent Total Time Spent with Patient: Total time spent is greater than 50% in coordination of care (as documented) at patient's floor/unit and/or counseling patient: Coding Level of Care Code 95237 INT INP/OBS CARE MIN Diagnoses Pulmonary embolism, bilateral I26.99
--- NOTE | 2025-08-31 17:02 | Hospitalist Progress Note ---
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 Symptoms started about 3 weeks ago with cough, uri symptoms, went to [facility] and found to have rhinovirus, started on prednisone. Today, he developed shortness of breath, stating "hard to breath", stabbing chest pain to the left side that worsened with deep breathing, dizziness, nausea and dry heaving. Hypoxic in the ED at 88% and required up to 3LPM of supplementl oxygen. Current tobacco user via Vape w/ nicotine and THC. Not currently anticoagulated. Acute hypoxic resp failure 2/2 Bilateral PE #Chest Pain * Admitted to PCU * +SOB, Hypoxia to 88%, left-side chest pain requiring supplemental O2; trop negative --> pt now on RA, chest pain improved * D-Dimer elev >15K * CTA chest showing numerous lobar and segmental bilateral pulmonary emboli, moderate embolus burden, No right heart strain * Chest Xray negative * BNP 10; Echocardiogram showing mild LVH w/ LVEF 55-60%, Grade I diastolic dysfunction, AV sclerosis * Venous Doppler for r/o DVT and showed extensive DVT to RLE * Heparin gtts initiated-> plan to transition to NOAC, Rx for eliquis sent and nolan checked (~$13) * hypercoagulable workup outpatient #Upper URI + Rhino * SOB, cough, rhinorrhea x 3 weeks-> + Rhinovirus * Isolation precautions * Wheezing in ED and given Albuterol neb w/ clinical improvement- Albuterol ordered Q6H as needed #Current tobacco user * Current vape use w/ nicotine and THC * Refused nicotine patch * Smoking cessation counselling prior to discharge #BPH * Continue home meds DVT Ppx: IV Heparin --> Eliquis Code status: DNR/DNI PCP: Dr. Silvina Guerrero (2) Pulmonary embolism, bilateral: (3) Chest pain: (4) Rhinovirus: (5) Tobacco use disorder: (6) BPH (benign prostatic hyperplasia): Admission and Anticipated Discharge Date Admission Date: August 30, 2025 Subjective Pt seen in follow up of acute DVT/PE Currently sitting up in bed in NAD, on iv heparin Says chest pain is much improved Denies shortness of breath, or hemoptysis Review of Systems Review of Systems: All systems reviewed & are unremarkable except as noted in Subjective Physical Exam Physical Exam: General: WD/WN M in NAD Eyes: PERRL, EOMI ENMT: External ear and nose normal Respiratory: Not in resp distress, on nasal cannula, CTA b/l Cardiovascular: RRR S1 S2 Gastrointestinal (Abdomen): Abdomen is not distended, soft, non-tender to palpation, normal bowel sounds Musculoskeletal: No pedal edema, No calf tenderness Neurologic: Alert and oriented x 3, speech fluent, no facial asymmetry, answers appropriately, move extremities Psychiatric: Euthymic affect Results & Data Results & Data Vital Signs (Past 12 Hours) Vital Signs Temp Pulse Pulse Resp BP Pulse Ox O2 Del Method 08/31/25 11:52 36.7 C 89 18 131/61 96 Room Air 08/31/25 09:00 94 Room Air 08/31/25 08:00 Room Air 08/31/25 08:00 36.6 C 77 16 136/68 99 Nasal Cannula 08/31/25 05:59 63 O2 Flow Rate 08/31/25 11:52 08/31/25 09:00 08/31/25 08:00 08/31/25 08:00 2.0 08/31/25 05:59 Laboratory Results 08/31/25 08/30/25 Range/Units 06:18 20:35 WBC 12.06 H (4.8-10.8) K/ul RBC 4.45 L (4.70-6.10) M/uL Hgb 14.4 (14.0-18.0) g/dl Hct 41.7 L (42.0-52.0) % MCV 93.7 (80.0-100.0) fL MCH 32.4 (25.0-34.0) pg MCHC 34.5 (32.0-36.0) g/dL RDW Std Deviation 44.5 (36.4-46.3) fL RDW Coeff of [place] 12.9 (11.5-14.5) % Plt Count 174 (130-400) K/uL MPV 10.2 (9.4-12.4) fL Heparin Anti-Xa, Unfract 0.64 0.62 (0.3-0.7) IU/ml Sodium 139 (136-145) mmol/L Potassium 4.2 (3.5-5.1) mmol/L Chloride 104 (98-107) mmol/L Carbon Dioxide 27 (21-32) mmol/L Anion Gap 8 (3-11) BUN 19 (6-23) mg/dl Creatinine 0.83 (0.6-1.4) mg/dl Est Cr Clr Drug Dosing 97.0 ml/min eGFR 98.34 BUN/Creatinine Ratio 22.9 H (10-20) Glucose 118 H (70-99(Fasting)) mg/dl Calcium 9.2 (8.6-10.3) mg/dl Phosphorus 3.3 (2.5-4.9) mg/dl Magnesium 2.5 H (1.7-2.4) mg/dl Medications Administered Current Inpatient Medications Acetaminophen (Acetaminophen 325 Mg Tab) 650 mg PO Q4H PRN PRN Reason: Pain or Fever Stop: 09/29/25 17:16 Al Hydrox/Mg Hydrox/Simethicone (Aluminum/Magnesium Susp 30 Ml Udc) 15 ml PO Q4H PRN PRN Reason: Dyspepsia Stop: 09/29/25 17:16 Albuterol (Albuterol 0.083% Nebu Soln 3 Ml Vial) 2.5 mg NEB Q6H PRN; Protocol PRN Reason: Shortness Of Breath Or Wheezing Stop: 09/29/25 17:16 Apixaban (Apixaban 5 Mg Tablet) 10 mg PO BID [facility] Stop: 09/07/25 09:01 Finasteride (Finasteride 5 Mg Tab) 5 mg PO DAILY JEAN Stop: 09/30/25 08:59 Last Admin: 08/31/25 08:25 Dose: 5 mg Heparin Sodium/Dextrose (Heparin 11233 Unit/500 Ml D5w) 25,000 units in 500 mls @ 29 mls/hr IV .[id number] JEAN; Protocol Stop: 08/31/25 21:00 Last Admin: 08/31/25 08:24 Dose: 1,450 units/hr, 29 mls/hr Linaclotide (Linaclotide 145 Mcg Capsule) 145 mcg PO DAILY [facility] Stop: 09/30/25 08:59 Last Admin: 08/31/25 08:25 Dose: 145 mcg Magnesium Hydroxide (Magnesium Hydroxide Susp 30 Ml Udc) 30 ml PO Q12H PRN PRN Reason: Constipation Stop: 09/29/25 17:16 Melatonin (Melatonin 3 Mg Tab) 3 mg PO HS PRN PRN Reason: Sleep Stop: 09/29/25 17:16 Miscellaneous (Heparin Drip - Stop Order) 1 each N/A 2100 ONE Stop: 08/31/25 21:01 Ondansetron HCl (Ondansetron Inj 2 Mg/Ml 2 Ml Vial) 4 mg IV Q6H PRN PRN Reason: Nausea Stop: 09/29/25 17:16 Polyethylene Glycol (Polyethylene (Miralax) 17 Gm Pack) 17 gm PO DAILY PRN PRN Reason: Constipation Stop: 09/29/25 17:16 Tamsulosin HCl (Tamsulosin Hcl 0.4 Mg Cap) 0.4 mg PO DAILY JEAN Stop: 09/30/25 08:59 Last Admin: 08/31/25 08:25 Dose: 0.4 mg
[2025-08-31] MEDS: ADENOSINE IV SOLN 3 MG/ML 2 ML VIAL IV STA (20:43)
[2025-08-31] MEDS: ADENOSINE IV SOLN 3 MG/ML 2 ML VIAL IV ONE (20:47)
[2025-08-31] MEDS: METOPROLOL TARTRATE 1 MG/ML VIAL IV STA (21:09)
--- NOTE | 2025-08-31 21:12 | Hospitalist Progress Note ---
Date of Service August 31, 2025 Assessment & Plan (1) Sustained SVT: (2) Pulmonary embolism, bilateral: (3) Deep vein thrombosis of right lower extremity: (4) Rhinovirus: (5) Acute hypoxic respiratory failure: (6) Tobacco use disorder: (7) BPH (benign prostatic hyperplasia): Plan Patient 64-year-old gentleman with known multiple bilateral PEs and rhinovirus acute onset of sustained and symptomatic SVT. Adenosine 12 mg x 1 dose given Patient converted to normal sinus rhythm Give Lopressor 5 mg IV x 1 Start Lopressor 12.5 mg p.o. every 8 hours Check laboratory studies Replace potassium 40 mg p.o. x 1 now Anticipate troponin may be elevated in the setting of SVT, this would be expected. Anticipate moving forward with plan to transition to [facility] this evening, transition at 10 PM Phone conversation/update with patient's at bedside. She is aware of the events of this evening. Admission and Anticipated Discharge Date Admission Date: August 30, 2025 Subjective Code purple: Called to the room, patient with telemetry heart rate 180-190, narrow complex. Patient states she is feeling some lightheadedness. Palpitations and chest pressure. Physical Exam Physical Exam: Constitutional: Alert, moderate distress HEENT: Mucous membranes moist. Lungs: Decreased breath sounds, prolonged CV: S1-S2, tachycardic Abdomen: Soft, nontender, nondistended Extremities: No significant edema Neuro: No focal deficits Psych: Cooperative, normal mood Results & Data Results & Data Vital Signs (Past 12 Hours) Vital Signs Temp Pulse Resp BP Pulse Ox O2 Del Method 08/31/25 19:12 36.7 C 83 18 117/85 93 Room Air 08/31/25 17:00 36.7 C 77 16 123/75 93 Room Air 08/31/25 11:52 36.7 C 89 18 131/61 96 Room Air Diagnostic Findings Personally reviewed EKG #1 SVT. With inferior lateral T wave abnormalities and PVCs Personally reviewed EKG #2, post adenosine: Normal sinus rhythm, controlled rate, nonspecific ST-T wave changes, T wave inversions in 3 and aVF have resolved when compared to previous WBCs 12.6 Hemoglobin 14.3 Platelets 195 Sodium 137 except calcium 3.7 Carbon dioxide 24 Creatinine 1.21 Magnesium 2.3 Glucose 119 Troponin pending Critical Care Time 45 minutes
[2025-08-31 21:16] LABS: Hematocrit (blood only) 41.2 % (42.0-52.0); Hemoglobin 14.3 g/dl (14.0-18.0); Mean Corpuscular Hemoglobin 32.1 pg (25.0-34.0); Mean Corpuscular Volume 92.6 fL (80.0-100.0); Platelet Count 195 K/uL (130-400); RDW Standard Deviation 44.2 fL (36.4-46.3); Red Blood Count 4.45 M/uL (4.70-6.10); White Blood Count 12.64 K/ul (4.8-10.8)
[2025-08-31] MEDS: METOPROLOL TARTRATE 25 MG TAB PO SCH (21:22)
[2025-08-31 21:23] LABS: Anion Gap 9.0 (3-11); Blood Urea Nitrogen 24.0 mg/dl (6-23); Calcium 8.7 mg/dl (8.6-10.3); Carbon Dioxide 24.0 mmol/L (21-32); Chloride 104.0 mmol/L (98-107); Creatinine Clr Calc Pharmacy 66.6 ml/min; Glucose 119.0 mg/dl (70-99(Fasting)); Magnesium 2.3 mg/dl (1.7-2.4); Potassium 3.7 mmol/L (3.5-5.1); Sodium 137.0 mmol/L (136-145)
[2025-08-31] MEDS: POTASSIUM CHLORIDE CRTAB 20 MEQ TABCR PO STA (21:58)
[2025-08-31] MEDS: HEPARIN DRIP - STOP ORDER ONE (21:58)
[2025-08-31] MEDS: APIXABAN 5 MG TABLET PO SCH (21:58)
[2025-09-01] MEDS: SODIUM CHLORIDE 0.9% 250 ML IV ONE (05:44)
[2025-09-01 06:25] LABS: Anion Gap 6.0 (3-11); Blood Urea Nitrogen 28.0 mg/dl (6-23); Calcium 8.6 mg/dl (8.6-10.3); Carbon Dioxide 28.0 mmol/L (21-32); Chloride 107.0 mmol/L (98-107); Creatinine Clr Calc Pharmacy 74.6 ml/min; Glucose 82.0 mg/dl (70-99(Fasting)); Potassium 4.4 mmol/L (3.5-5.1); Sodium 141.0 mmol/L (136-145)
[2025-09-01 07:24] VITALS: BP 101/67; PULSE 70; RESP 20; TEMP 98.1; O2SAT 96
--- NOTE | 2025-09-01 10:05 | Discharge Summary ---
Discharge Summary Date of Service September 01, 2025 Principal Dx & Hospital Course #1 = Principal Diagnosis (1) Sustained SVT: (2) Pulmonary embolism, bilateral: (3) Deep vein thrombosis of right lower extremity: (4) Rhinovirus: (5) Acute hypoxic respiratory failure: (6) Tobacco use disorder: (7) BPH (benign prostatic hyperplasia): Plan Mr Saavedra is a pleasant 64M with PMH hepatitis C, penile carcinoma, hypothyroidism, current tobacco use, hemochromatosis carrier who was admitted for SOB. He was found to have bilateral PE on CTA chest. Started on heparin drip. TTE showed EF 50% without RV strain. He was converted to eliquis starter pack yesterday. Overnight, he developed a brief episode of SVT which broke with adenosine. He was started on lopressor. no further episodes. electrolytes, trop WNL. Today he feels very well and wishes to go home. denies any complaints. On room air. vitals and labs are stable for dc home. He was instructed on the importance of taking his eliquis. This is an unprovoked DVT/PE so would favor at least 6 months of AC, possibly lifelong AC. Notes For Next Care Provider Medication Changes From Visit eliquis starter pack Toprol 25 Admission HPI Per Admitting Provider Patient is a 64 year old M with a past medical history of hepatitis C, penile carcinoma, hypothyroidism, current tobacco use, hemochromatosis carrier (H63D mutation) presenting with chest pain, shortness of breath and cough. Symptoms started about 3 weeks ago with cough, uri symptoms, went to [facility] and found to have rhinovirus, started on prednisone. Today, he developed shortness of breath, stating "hard to breath", stabbing chest pain to the left side that worsened with deep breathing, dizziness, nausea and dry heaving. Hypoxic in the ED at 88% and required up to 3LPM of supplemental oxygen. Current tobacco user via Vape w/ nicotine and THC. Not currently anticoagulated. Denies fever, chills, weight loss, weakness, headache, cognitive changes, vision/hearing changes, swelling, urinary concerns, V/D, joint swelling/pain, ambulation difficulty, skin rashes, lesions, bleeding, bruising. In the emergency department, patient was hemodynamically stable with tachypnea to 29-30 and hypoxic to 88% on room air. Initially, the patient was wheezing and reported a history of having URI recently. Albuterol neb given in ED with some clinical improvement. BioFire + Rhino. Chest Xray showed no acute findings. EKG normal. Patient reported having chest pain, stabbing to left side, and not currently on anticoagulation with no history of blood clots. D-Dimer elevated >15K. Chest CTA showing several lobar and segmental right and left sided pulmonary emboli with no right heart strain noted. Trop negative. Heparin bolus and drip started in the ED. Bili elevated to 1.3 noted on lab workup with a normal AST/ALT. Echocardiogram ordered showing mild LVH w/ LVEF 55-60%, Grade I diastolic dysfunction, AV sclerosis. As per external chart review, patient was seen by [facility] on 08/19 for chest pain, cough, shortness of breath and diagnosed with URI. He was sent home with Prednisone taper. As per patient's , his symptoms began ~08/09 with URI symptoms that started after the was hospitalized following a brain surgery procedure. As per external record review, patient has a history of hemochromatosis genetic [id number] and does not follow Hematology outpatient. He is not currently anticoagulated and has no history of blood clots; however, he dos have risk factors including history of penile carcinoma with current tobacco use. History obtained primarily from the patient and via hospitalization record. The patient's family was at the bedside and assisted with history of present illness and medications. External chart review obtained from [facility]. Discharge Exam Vitals and labs reviewed General: Well appearing, NAD HEENT: EOMI, PERRLA Neck: Supple Cardiac: RRR no rubs gallops or murmurs Lungs: CTA no rhonchi wheezing or rales Abd: S NT ND BS positive : Deffered MSK: Full ROM. No obvious deformities Ext: No Edema cyanosis Skin: Warm, Dry Neuro: AOx3 No focal deficits. Psych: Normal Mood Updated Medication List Medication Instructions Recorded Confirmed Type multivitamin 1 tab PO DAILY 01/23/21 08/30/25 History finasteride 5 mg tablet 5 mg PO DAILY 02/02/25 08/30/25 History tamsulosin 0.4 mg capsule 0.4 mg PO DAILY 02/02/25 08/30/25 History ustekinumab 45 mg/0.5 mL 45 mg subcut Q3M 02/02/25 08/30/25 History subcutaneous syringe (Stelara) albuterol sulfate 90 mcg/actuation 2 puff inhalation Q6H PRN 08/30/25 08/30/25 History aerosol inhaler cough,sob,wheezinng benzonatate 100 mg capsule 100 mg PO UD PRN Cough 08/30/25 08/30/25 History doxycycline hyclate 100 mg capsule 100 mg PO BID .for 10 days 08/30/25 08/30/25 History linaclotide 145 mcg capsule 145 mcg PO DAILY 08/30/25 08/30/25 History (Linzess) prednisone 10 mg tablet 10 mg PO UD 08/30/25 08/30/25 History apixaban 5 mg tablet (Eliquis) 5 mg PO UD #74 tabs 08/31/25 Rx metoprolol succinate 25 mg 25 mg PO DAILY 30 days #30 tabs 09/01/25 Rx tablet,extended release 24 hr (Toprol XL) Hospital Stay Data Consultations 08/30/25 13:55 ED Decision to Admit Stat 08/30/25 17:17 Consult Pulmonology Routine Diagnostic Imagining Performed 08/30/25 12:47 CT angio chest PE protocol Stat 08/30/25 14:45 US venous doppler LE BI Urgent Pending Results Patient Have Any Pending Studies at Discharge: No Discharge Instructions Given to Patient (Per Discharging Provider) You were admitted for a pulmonary embolism. You were started on eliquis for this. Follow the provided instructions, your dose will decrease to 5mg twice daily on day 8 of treatment. you will then take that dose for at least 6 months. Your PCP will decide whether to continue treatment after that. You were also started on metoprolol due to the short rhythm issue you had last night, continue taking at home. if you have those symptoms again, return to ED immediately. Total Time Total Time Spent Total Time Spent (In Minutes): 42
--- NOTE | 2025-09-01 18:12 | Electrocardiogram Report ---
Test Reason : Blood Pressure : */* mmHG Vent. Rate : 82 BPM Atrial Rate : 82 BPM P-R Int : 146 ms QRS Dur : 100 ms QT Int : 390 ms P-R-T Axes : 50 -50 27 degrees QTcB Int : 455 ms Normal sinus rhythm Left anterior fascicular block Nonspecific ST abnormality Abnormal ECG When compared with ECG of 31-Aug-2025 20:37, (unconfirmed) Fusion complexes are no longer Present Premature ventricular complexes are no longer Present Vent. rate has decreased by [address] less depressed in Inferior leads ST no longer depressed in Anterolateral leads Confirmed by David Abad ([id number]) on 09/01/2025 6:11:53 PM Referred By: REFERRED SELF Confirmed By: David Abad
== END 2025-09-01 11:00 | disposition home or self-care (01) | DRG 175 ==
LOC: ED 11:08 → SUATTDRO 14:50 → 2E 14:50